=== PATIENT | female | born 1950 | race Caucasian/White ===

== ENCOUNTER 2025-07-10 14:57 | Outpatient (CLI) | payer MEDICARE, OTHER, SELFPAY ==
--- NOTE | 2025-07-10 15:10 | XR_ITS ---
FINAL REPORT CLINICAL HISTORY: ARTHRITIC PAIN, fall 2 yrs ago, severe pain FINDINGS: AP, lateral and oblique views of the left knee were obtained. There is no prior exam for comparison. There is no acute osseous abnormality of the left knee. The joint space is preserved. The soft tissues are normal. There is no joint effusion. IMPRESSION: No acute osseous abnormality of the left knee. Reviewed, Interpreted and Dictated by Dione Chua MD Transcribed by Marta Torres Authenticated and [facility]
--- NOTE | 2025-07-10 15:10 | XR_ITS ---
FINAL REPORT CLINICAL HISTORY: arthritic pain, fall 2 yrs ago, worsening pain FINDINGS: AP, lateral and oblique views of the right knee were obtained. There is no prior exam for comparison. There is no acute osseous abnormality of the right knee. There is degenerative joint disease, most pronounced in the lateral compartment. The soft tissues are normal. There is no joint effusion. IMPRESSION: Degenerative joint disease. Reviewed, Interpreted and Dictated by Dione Chua MD Transcribed by Marta Torres Authenticated and . [facility]
== END 2025-07-10 23:59 | disposition home or self-care (01) ==
LOC: RAD 15:02
PROVIDERS: PCP Internal Medicine Adolescent Medicine; Visit Provider Internal Medicine Adolescent Medicine
DX: M17.0 Bilateral primary osteoarthritis of knee (principal)
CPT/HCPCS: 73562